=== PATIENT | female | born 1980 | race Caucasian/White ===

== ENCOUNTER 2016-09-19 16:13 | Emergency (ER) | payer OTHER ==
[~2016-09-19 16:13] MED LIST: ALBUTEROL17 GM INH; ANTIDEPRESSANT; BACTRIM DS TABL1 TA1 PO; BIRTH CONTROL; BIRTH CONTROL PILL; CIPRO PO; KEFLEX500 MG PO; LORTAB 5/500 TA1 TA1 PO; MACROBID100 MG PO; MEDROL DOSEPAK4 MG PO; NAPROSYN375 MG PO; NAPROXEN; NO MEDICATIONS; ORUDIS75 M1 PO; PAXIL10 MG PO; PEN-VEE K PO; PHENERGAN DM1 ML PO; PHENERGAN PO; PHENERGAN25 MG PO; PREDNISONE PO; PYRIDIUM PO; ROBAXIN500 MG PO; ULTRAM PO; VICODIN 5/1 TAB 5/50 PO; ZITHROMAX PO
== END 2016-09-19 16:20 | disposition home or self-care (01) ==
LOC: SED 16:13
DX: L03.011 Cellulitis of right finger (principal); F17.210 Nicotine dependence, cigarettes, uncomplicated
CPT/HCPCS: 99282

== ENCOUNTER 2016-12-11 11:56 | Emergency (ER) | payer OTHER | END 2016-12-11 12:24 | disposition home or self-care (01) | LOC: SED 11:56 | DX: L42 Pityriasis rosea (principal); R21 Rash and other nonspecific skin eruption; F17.200 Nicotine dependence, unspecified, uncomplicated | CPT/HCPCS: 99282 ==